=== PATIENT | female | born 1985 | race Caucasian/White ===

== ENCOUNTER 2018-08-07 10:48 | Inpatient (IN) | payer OTHER ==
--- NOTE | 2018-08-06 21:25 | PDGENHP ---
History and Physical - Chief Complaint RIGHT HIP PAIN - History of Present Illness Diagnosis: 1.~~~Bilateral~Hip Dyplasia 2.~~~Bilateral~Femoroacetabular impingement (IDALIA) Cam type,~with~resultant labral tear 3. 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 ~Marisaenjoys hiking, fishing, hunting and [employer]. Shireen's~bilateral~hip pain~started December 2016~during a traumatic delivery of her daughter,~and with~no~previous complaints.~Marisadoes have~a known history of hip dysplasia. She saw Dr. Quinten Velazquez's PA,~who referred her to our clinic. Presentation today is of~anterior~bilateral~hip pain.~~The hip~does~wake her~at night and~does~click and catch on~her. Sitting~can be a real struggle~for her.~ Marisadoes~report suffering from lower back pain episodes. Marisahas~participated in physical therapy (several months)~and has~tried other conservative measures including:~diagnostic~Right~hip injection~which gave her 100% relief, Right Piriformis injection gave her 100% relief, Right SIJ injection 1 month relief,~dry needling and massage therapy.~She~has not~ received sufficient symptomatic improvement. Marisahas~utilized medication for pain management, including OTC acetaminophen. ~Marisahas used medication since the pain began.~ Marisaunderstands that~xenia~has a hip and pelvis problem which should be researched and wishes to get a better understanding of~her~hip status, followed by an establishment of a treatment strategy, hoping~xenia~would be able to get back to~her~well being active life. History: Past medical history:~~ GERD, endometriosis, PTSD Relevant familial history:~OA father and mother (back); sister with MS Past surgical history:~ No. Surgery Anesthesia 1 Epidural/general Shireen~denies problematic issues with general anesthesia in the past. I have reviewed, verified and agree with the past medical, surgical, family and social history. Current Medications:~has a current medication list which includes the following prescription(s): acetaminophen, celecoxib, cholecalciferol (vitamin d3), diclofenac sodium 1%, dicyclomine, levonorgestrel-ethi estradiol, lisdexamfetamine, multivitamin, and ondansetron, and the following Facility- Administered Medications: lidocaine. ALLERGIES:~is allergic to augmentin [amoxicillin-pot clavulanate]; avelox [ moxifloxacin]; latex; moxifloxacin hcl; penicillins; and wellbutrin [bupropion hcl]. Objective: Physical Examination: Marisais 5~feet~5~inches tall and weighs~122~Lbs. Shoe size~8.5. Marisais AAO x3; she~is well-nourished, in NAD. Skin is warm and dry. ~ Breathing is non-labored. ~CV with RRR by pulse. Abdomen is soft, NTND. Currently,~she~walks with an~abnormal~antalgic gait favoring LEFT leg Trendelenburg sign is~negative~and proprioception~is reduced,~both~sides. She~presents~with no~signs of joint laxity.~Beightons Score:~0 Lower spine examination is~positive~for sciatic nerve irritation with positive~ SLR tests.~Range of motion of the spine is normal~for flexion, extension, and rotations,~with~associated pain. Strength, Sensation and pulses are~normal -~bilaterally Ankles and knees exams are~normal~and~no~mal-alignment is evident.~ She~has~no leg length discrepancy. Thigh circumference is~symmetric~with no evidence for muscle atrophy~on both~ sides. Hip ROM (degrees): FL ER At 90~hip FL IR At 90~hip FL AB AD EX IR Neutral hip ER Neutral hip R 115 55 25 35 5 10 40 45 L 110 60 40 40 5 20 40 20 Specific hip and pelvis tests: Impingement Test MATHEUS Roll Add. Longus R +++ +++ ++ +++ L +++ +++ ++ +++ Glut. Med ITB Posterior Imp R Negative 5/5 strength Negative 5/5 strength +++~ L Negative 5/5 strength Negative 5/5 strength Negative Squeeze test measured~weak Bony Symphysis pubis is~painful~to touch~while concentric activity of the rectus abdominis, does~produce pain at its insertion. Ilio Psos specific tests are~positive for pain during cycling~for both hips~and no snap. HF has~weakness, pain~both hips. Posterior~capsule tenderness bilaterally Greater trochanteric burse is~pain free~on both hips. Piriformis tests: FAIR is~positive,~with no~local signs of neuritis related to sciatic nerve. SIJs examination is~produces pain on~right side~with~normal~MATHEUS in relation and local tenderness. Hamstrings tests are~negative~functional contraction and positive~tendinopathy the right hip. On a daily basis, the following percentages reflect~Shireen's overall total pain: Deep hip:~80% SIJ:~10% Right Hamstrin% Imaging: Radiology studies which I~have personally reviewed, analyzed and measured are below: XR: AP of the hip and pelvis: Performed in a~good~technique Coccyx to pubic symphysis distance~0.8~cm. 0~degrees [place]~Lines are interrupted. Minimal~Pathological signs are seen in the Symphysis Pubis.~ Minimal~Pathological signs are seen at the Ischial~tuberosity. ~ Specific measurements show: NSA~ LCE Sourcil~Angle Sharp's angle Lat. Cam Lat. Pincer C.Over~sign Head~Coverage % ATDmm R 132 14 10 46 - - - 71 N L 134 12 13 47 - - - 64 N Pos. wall sign ISS NAD ~~Dysplasia Comments R Negative Negative 19~mm +++ L Negative Negative 26.7~mm +++ Sclerosis Sup. Lat. OA Cysts Joint Space-WBZ Joint Space-Medial R Negative Negative Negative 4.3~mm 3.9~mm L Negative Negative Negative 4.2~mm 3.7~mm X Table lateral: Anterior cam lesion is~seen~on both hips. Alpha Angle: ~ Right~68~degrees Left~60~degrees CT / 3D:~ MEASUREMENTS: Right hip: Lateral center edge angle: 20 degrees Anterior center edge angle: 48 degrees Equatorial acetabular version angle: 30 degrees Cranial acetabular version angle: 19 degrees Femoral neck shaft angle: 139 degrees Femoral neck version angle: -13 degrees. Right femoral torsion measures 0 degrees. Left hip: Lateral center edge angle: 17 degrees Anterior center edge angle: 34 degrees Equatorial acetabular version angle: 32 degrees Cranial acetabular version angle: 25 degrees Femoral neck shaft angle: 139 degrees Femoral neck version angle: -9 degrees. Left femoral torsion measures 4 degrees. MRI shows:~ Hypertrophied, torn labrum, no bone edema or cystic changes. ~Good cartilage coverage. ~ Impression and plan:~ Shireen~is a~32 y.o.~active female~suffering from symptomatic~Bilateral~hip pain due to Hip Dyplasia~and~Femoroacetabular impingement (IDALIA)~Cam type,~with~ resultant labral tear causing significant disability to~her~and altering~her~ sport and life activities. She also presents with femoral retro torsion characteristics.~ Physical examination, imaging, and~her~story correspond with the diagnosis mentioned above. I explained that hip dysplasia is a condition wherein the hip joint has excessive play~and instability due to a variety of factors, including the depth and adequacy of the socket, the orientation of the femur bone, and ligament laxity around the hip joint. Dysplasia ranges in severity from borderline to ignacio, with treatment options being specific to the specific nature of the problem. Left untreated, the instability in the hip joint can cause progressive tearing of the labrum and deterioration of the surface cartilage, ultimately resulting in progressive osteoarthritis of the hip. I explained that femoroacetabular impingement (IDALIA - Cam type) arises due to a bony or soft tissue conflict between the femur (ball) and acetabulum (socket) caused by an abnormality in the shape of the femoral head and neck. Over time, repetitive impingement can result in damage to the labrum and adjacent surface cartilage within the socket, ultimately giving rise to progressive osteoarthritis of the hip. I explained that although a labral tear can be a source of pain, it is rarely the root of the problem and typically occurs secondary to an underlying abnormality in the shape and mechanics of the hip joint. I reviewed conservative treatment options for Dysplasia and IDALIA including activity modification to avoid positions of impingement or instability, physical therapy, non-steroidal anti-inflammatory medications, and various injections (corticosteroid and PRP) aimed at reducing inflammation in the hip joint or/and preventing dynamic instability and impingement. PRP injections may promote healing and reduce symptoms in certain cases but it will not repair chronically damaged tissue. Although these measures may help to buy time~and reduce current level of symptoms, they are not a definitive solution to the problem given the underlying abnormality in the shape of the hip joint. Patients who have failed conservative management and continue to experience symptoms are candidates for definitive surgical treatment, which may consist of hip arthroscopy alone or in combination with more invasive bony realignment procedures of the hip socket and/or femur called periacetabular osteotomy (GISELA) or derotational femoral osteotomy (DFO). Hip arthroscopy typically includes treating the labrum with either repair or reconstruction of the torn labrum; as well as addressing the underlying abnormalities by restoring the normal shape to the hip joint. If the cartilage is damaged a Microfracture surgical procedure may also be necessary to help stimulate the growth of fibrocartilage. If a patient requires a labral reconstruction or a Microfracture, the initial rehabilitation from the surgery may take longer, but the termite technician results are typically favorable. I reviewed the technical aspects of periacetabular osteotomy (GISELA) including risks, benefits, and expected course of recovery.~Shireen~understands that GISELA is an inpatient procedure carried out through two medium sized incisions on the front and back of the hip joint. The hip socket is cut, realigned, and stabilized with 2 3 internal screws. Risks include infection, bleeding, injury to nearby nerves or vessels, stiffness, persistent pain, instability, failure of bony healing, implant related complications, and venous thromboembolic disease. Rarely, revision surgery may be required to address these problems. Risks, potential complications, side effects and recovery from surgical procedure were discussed in length. We explained how this surgery is an open procedure, and though patients tend to do well in the long-term, it involves significant pain in the first 2-4 weeks post-op and a rather lengthy rehab.~Overall recovery takes approximately 6 12~months depending on the extent of damage and degree of repair. Shireen~understands that she~will undergo hip arthroscopy 1 week prior to the GISELA to address damage inside the hip joint. Shireen~understands that hip arthroscopy and GISELA are two separate procedures that are best performed one week apart, with the arthroscopy commencing first to "tighten up" any pathology evident in the hip joint (labral repair, etc.) and the GISELA open procedure occurring 7-10 days later to realign the acetabulum. I explained that femoral~Retro-torsion~is a condition wherein the hip joint has reduced range of motion~due the fact the~femur bone is rotated towards the back of the hip socket resulting in additional impingement pathology. This pathology ranges in severity with treatment options being specific to the nature of the problem. Left untreated, the retro-torsion related impingement in the hip joint can cause progressive tearing of the labrum and deterioration of the surface cartilage, ultimately resulting in progressive osteoarthritis of the hip.~ At this point, due to her activity level and goals, we will not plan on adding a DFO to the GISELA. However, we discussed that if she would feel that the GISELA resulted in significant loss of physiological range of motion we can proceed with a DFO at a later date. ~ In order to differentiate between the various possible sources of pain~Shireen~ opted to move forward with an intra articular injection today in clinic. After verbal consent was obtained and Marisavoiced understanding of risks of infection, misplaced injection, fat or skin atrophy or injection into unintended structures, skin was prepped and draped in routine sterile fashion. With sterile technique, after local skin and subcutaneous tissues were injected with 5cc 1% lidocaine, an injection of 2cc of Kenalog 40 and 5cc of 1% lidocaine +marcaine~was injected into Shireen's hip joint without complication. The proce dure was well tolerated.~Shireen~noted improved symptoms with activity immediately after injection. The injection took~100% of the pain away. If Shireen continues to have increased Symphysis pubis pain after she gets relief from the cortisone injection, we can refer her to [facility] [place] for an ultrasound guided cortisone injection. Marisawill review the info presented. Marisawill talk with our pattern painter about possible surgery dates. ~She will first set up the date for the GISELA and will then schedule with Dr. Shipley for the hip arthroscopy. Marisais happy with this plan. I have also supplied~her~with handouts, outlining the expected surgical treatment and rehab involved. I wish~Shireen~all the best, ~~ STACIA Gutierrez History Information - Allergies/Home Medication List Allergies/Adverse Reactions: latex Allergy (Verified 07/26/18 18:17) Rash Penicillins Allergy (Verified 07/26/18 18:16) YEAST INFECTION SSRI Allergy (Uncoded 07/26/18 18:17) Diarrhea Home Medications: ACETAMINOPHEN DAILY 07/26/18 [Last Taken Unknown] Claritin DAILY 07/26/18 [Last Taken Unknown] Dicyclomine PRN 07/26/18 [Last Taken Unknown] Prilosec DAILY 07/26/18 [Last Taken Unknown] Probiotic BID 07/26/18 [Last Taken Unknown] VYVANSE DAILY 07/26/18 [Last Taken Unknown] Zantac DAILY 07/26/18 [Last Taken Unknown] Zofran Odt 4 mg (*) PRN 07/26/18 [Last Taken Unknown] I have personally reviewed and updated: medical history - Social History Smoking Status: Former smoker Review of Systems Review of Systems: Physical Exam Physical Exam:
[2018-08-07] MEDS ORDERED: PREGABALIN 150 MG CAP PO ONE (11:27)
[2018-08-07] MEDS ORDERED: TRANEXAMIC ACID 1,000 MG in NS 100 ML IV ONE (11:27)
[2018-08-07] MEDS ORDERED: SCOPOLAMINE HYDROBROMIDE 1 MG/3 DAYS PATCH TD ONE (11:27)
[2018-08-07] MEDS ORDERED: ACETAMINOPHEN 500 MG TAB PO ONE (11:27)
[2018-08-07] MEDS ORDERED: ceFAZolin 2 GM/DEXTROSE 100 ML IV ONE (11:27)
[2018-08-07] MEDS ORDERED: LR 1,000 ML IV ONE (11:29)
[2018-08-07] MEDS ORDERED: MIDAZOLAM 2 MG/2 ML VIAL IVP ONE (13:03)
--- NOTE | 2018-08-07 13:05 | PDANEPAE ---
ANE Past Medical History - Cardiovascular History Hx Hypertension: No Hx Arrhythmias: No Hx Chest Pain: No Hx Coronary Artery / Peripheral Vascular Disease: No Hx CHF / Valvular Disease: No Hx Palpitations: No Cardiovascular History Comment: SVT 04/02/18 HOLTER NORMAL. ONE TUNE - Pulmonary History Hx COPD: No Hx Asthma/Reactive Airway Disease: No Hx Recent Upper Respiratory Infection: No Hx Oxygen in Use at Home: No Hx Sleep Apnea: No Sleep Apnea Screening Result - Last Documented: Negative - Neurologic History Hx Cerebrovascular Accident: No Hx Seizures: No Hx Dementia: No - Endocrine History Hx Diabetes: No - Renal History Hx Renal Disorders: No - Liver History Hx Hepatic Disorders: No - Neurological & Psychiatric Hx Hx Neurological and Psychiatric Disorders: Yes Neurological / Psychiatric History Comment: ADHD - Cancer History Hx Cancer: No - Congenital Disorder History Hx Congenital Disorders: Yes Congenital History Comment: HIP DYSPLASIA - GI History Hx Gastrointestinal Disorders: Yes Gastrointestinal History Comment: IBS - Other Health History Other Health History: ECZEMA SHLDRS,FACE AND NECK - Chronic Pain History Chronic Pain: Yes (CAMELIA HIPS) - Surgical History Prior Surgeries: RT HIP SCOPE LABRAL REPAIR 07/31/18 IN [place]. 2017 ANE Review of Systems Review of Systems: - Exercise capacity METS (RN): 4 METS ANE Patient History - Allergies Allergies/Adverse Reactions: latex Allergy (Verified 07/26/18 18:17) Rash Penicillins Allergy (Verified 07/26/18 18:16) YEAST INFECTION SSRI Allergy (Uncoded 07/26/18 18:17) Diarrhea - Home Medications Home medications: home medication list seen and reviewed Home Medications: ACETAMINOPHEN DAILY 07/26/18 [Last Taken 08/07/18 00:40] Claritin DAILY 07/26/18 [Last Taken 08/06/18] Dicyclomine PRN 07/26/18 [Last Taken Unknown] Prilosec DAILY 07/26/18 [Last Taken 08/06/18] Probiotic BID 07/26/18 [Last Taken 08/06/18] VYVANSE DAILY 07/26/18 [Last Taken 07/31/18] Zantac DAILY 07/26/18 [Last Taken 08/06/18] Zofran Odt 4 mg (*) PRN 07/26/18 [Last Taken 08/05/18] [place]well 5-325 Tablet 08/07/18 [Last Taken 08/07/18 04:00] - NPO status NPO Since - Liquids (Date): 08/07/18 NPO Since - Liquids (Time): 04:00 NPO Since - Solids (Date): 08/06/18 NPO Since - Solids (Time): 18:00 - Smoking Hx Smoking Status: Former smoker ANE Labs/Vital Signs - Labs Result Diagrams: 08/07/18 11:27 - Vital Signs Height: 165.1 cm Weight: 55.338 kg ANE Physical Exam - Airway Mallampati Score: Class 1 Mouth exam: normal dental/mouth exam - Pulmonary Pulmonary: clear to auscultation - Cardiovascular Cardiovascular: regular rate and rhythym - ASA Status ASA Status: II ANE Anesthesia Plan Anesthesia Plan: general endotracheal anesthesia Regional Anesthesia: single shot NB, POPC/PSR
[2018-08-07] MEDS ORDERED: CITRATE DEXTROSE SOLN 500 ML BAG ONE (13:25)
[2018-08-07] MEDS ORDERED: DEXMEDETOMIDINE HCL 400 MCG in NS 100 ML IV SCH (13:30)
[2018-08-07] MEDS ORDERED: HYDROmorphONE/DILAUDID 2 MG/ML INJ ONE (13:34)
[2018-08-07] MEDS ORDERED: PROPOFOL 200 MG/20 ML VIAL ONE (13:34)
[2018-08-07] MEDS ORDERED: fentaNYL 100 MCG/2 ML INJ ONE ×2 (13:34→18:41)
[2018-08-07] MEDS ORDERED: PROPOFOL/EMULSION 500 MG/50 ML BOTTLE IV ONE ×2 (13:34→15:09)
[2018-08-07] MEDS ORDERED: PETROLAT,WHT/MIN OIL/SOD CHL 3.5 GM OPHT.OINT ONE (13:35)
[2018-08-07] MEDS ORDERED: morphINE PF 5 MG/10 ML INJ ONE (13:43)
[2018-08-07] MEDS ORDERED: ePHEDrine SULFATE 25 MG/5 ML SYR ONE ×2 (14:15→14:23)
[2018-08-07] MEDS ORDERED: ROCURONIUM 50 MG/5 ML VIAL ONE ×2 (14:22)
[2018-08-07] MEDS ORDERED: PHENYLEPHRINE HCL 100 MCG/ML SYR ONE (14:23)
[2018-08-07] MEDS ORDERED: DEXAMETHASONE 4 MG/ML VIAL ONE (14:23)
[2018-08-07] MEDS ORDERED: RANITIDINE 50 MG/2 ML VIAL ONE (14:24)
[2018-08-07] MEDS ORDERED: METOCLOPRAMIDE 10 MG/2 ML VIAL ONE (14:24)
[2018-08-07] MEDS ORDERED: ONDANSETRON 4 MG/2 ML VIAL IVP PRN ×2 (17:45→18:06)
[2018-08-07] MEDS ORDERED: LACTULOSE 20 GM/30 ML UDCUP PO PRN (17:45)
[2018-08-07] MEDS ORDERED: POLYETHYLENE GLYCOL 3350 17 GM PKT PO PRN (17:45)
[2018-08-07] MEDS ORDERED: BISACODYL 10 MG SUPP PR PRN (17:45)
[2018-08-07] MEDS ORDERED: ACETAMINOPHEN 325 MG TAB PO PRN (17:45)
[2018-08-07] MEDS ORDERED: ONDANSETRON DISINTEGRATING 4 MG TAB PO PRN (17:45)
[2018-08-07] MEDS ORDERED: MAGNESIUM HYDROXIDE 30 ML UDCUP PO PRN (17:45)
[2018-08-07] MEDS ORDERED: NALOXONE HCL 0.4 MG/ML INJ IVP PRN ×2 (17:46→18:06)
[2018-08-07] MEDS ORDERED: diphenhydrAMINE 25 MG CAP PO PRN (17:46)
[2018-08-07] MEDS ORDERED: oxyCODONE IR 5 MG TAB PO PRN ×2 (17:47→18:06)
[2018-08-07] MEDS ORDERED: PROMETHAZINE HCL 25 MG/ML INJ IVP PRN (18:06)
[2018-08-07] MEDS ORDERED: DIAZEPAM 10 MG/2 ML SYR IVP PRN (18:06)
[2018-08-07] MEDS ORDERED: ACETAMINOPHEN 500 MG TAB PO PRN (18:06)
[2018-08-07] MEDS ORDERED: HYDROCODONE/APAP 5/325 TAB PO PRN (18:06)
[2018-08-07] MEDS ORDERED: HYDROmorphONE/DILAUDID 1 MG/ML INJ ONE (18:12)
--- NOTE | 2018-08-07 18:12 | POSTANESTH ---
Post Anesthetic Evaluation Cardiovascular Status: Normal, Stable, Similar to Pre-Op Cond Respiratory Status: Normal, Stable, Similar to Pre-op Cond. Level of Consciousness/Mental Status: Mildly Sleepy, Arousable Pain Control: Adequate, Prn Tx Ordered Nausea/Vomiting Control: Adequate, Prn Tx Ordered Complications Possibly Related to Anesthesia: None Noted
[2018-08-07] MEDS: HYDROmorphONE/DILAUDID 1 MG/ML INJ IVP PRN ×2 (18:18→18:28)
--- NOTE | 2018-08-07 18:20 | SUROPNOTE ---
SARAH Operative Report - Surgery Surgery was performed at [facility] on~08/07/18~ Diagnosis:~Right 1. Hip Acetabular Dysplasia ~ Operation: Right~Erin Acetabular Osteotomy (GISELA) Surgeon: Jonathon Valdes MD Furniture Fabricator:~~Maday Melo MD Anesthetic: General + spinal Procedure: General anesthetic. Antibiotics given. Cell saver in use. Fluoroscopy. Phase 1: Position lateral, diagonal skin incision between ischial tuberosity and greater trochanter as for posterior hip approach. Blunt split of glut max fibers. Identification of fat pad overlying sciatic nerve. Exposure of sciatic nerve under fat pad, gently retracting it away-medially to ischial tuberosity. Exposure of subcotoloid fossa proximal to short rotators. UsingPrecision saw, osteotomy of subcotoloid [id number] mm short of (lateral to) thesciatic notch. Closure of lateral cut. Patient is turned supine. Phase 2: Skin incision just distal to ASIS. Using diathermy the iliac spine was exposed and inguinal ligament + Sartorious were retracted medially, taking the LFCN with them, protecting it. Inner ilium was dissected from iliacus muscle bluntly , with a cob and swab. Dissection continued towards lateral superior ramus pubis. Using fluoroscopy an osteotomy of lateral superior ramus, just medial to tear drop, was performed with~curved fish mouth osteotome. Phase 3: Osteotomy lines of the ilium were marked with diathermy as pre planned according to XR/CT and expected correction of acatabulum. 2 Shanz screws were drilled into central acetabular fragment, corresponding with planned correction angles, in order to mobilize central acetabular fragment after osteotomy is complete. ~Iliac osteotomy was performed with reciprocating saw and the main acetabular fragment was moved to realign weight bearing position. After confirmation of correction using fluoroscopy in AP and false profile planes, the fragment was fixed with 3 -~5.5mm~~full threaded~screws~and 1 -~4mm~~full threaded~screw. Inguinal ligament and Sartorious were attached back to ASIS through drill holes. Incision was closed according to soft tissue layers. Skin was closed with~subdermal Monocryl. Final fluoro shots were obtained to confirm position/correction. After surgery~Shireen~moved both lower limbs and had no NV motor compromise. Specimen - none Bleeding -~550ml Complication - none Evaluation under anesthesia: IR at 90 degrees hip flexion prior to GISELA was~20~degrees and after GISELA was 5~ degrees. Bleeding:~550~cc into cell-saver, 270~of blood products were returned to patient. Post op instructions: 1.~Non~weight bearing crutches for 3~weeks 2. Continuous SCD 3. Aspirin 81 mg X1 day starting POD1 4. Avoid hip flexion past 90 and hip External rotation. 5. PT according to my recommendations at follow up visit Kind regards, Dr. Jonathon Valdes
[2018-08-07] MEDS ORDERED: METOPROLOL TARTRATE 5 MG/5 ML INJ ONE (18:41)
[2018-08-07] MEDS: fentaNYL 100 MCG/2 ML INJ IVP PRN ×2 (18:45→18:51)
[2018-08-07] MEDS ORDERED: METOPROLOL TARTRATE 5 MG/5 ML INJ IVP ONE (19:00)
[2018-08-07] MEDS ORDERED: SENNOSIDES/DOCUSATE SODIUM TAB PO SCH (21:00)
[2018-08-07] MEDS: NS 1,000 ML IV SCH (21:05)
[2018-08-07] MEDS: HYDROmorphONE/DILAUDID 6 MG/30 ML PCA IV PRN (21:05)
[2018-08-07] MEDS: oxyCODONE IR 5 MG TAB PO SCH (22:04)
[2018-08-07] MEDS: NAPROXEN SODIUM 220 MG TAB PO SCH (22:05)
[2018-08-08] MEDS: oxyCODONE IR 5 MG TAB PO SCH ×5 (01:44→13:43)
[2018-08-08] MEDS: NS 1,000 ML IV SCH ×2 (06:48→18:33)
[2018-08-08] MEDS ORDERED: CALCIUM CARBONATE 500 MG CHEWABLE TAB PO PRN (08:13)
[2018-08-08] MEDS ORDERED: DICYCLOMINE 10 MG CAP PO PRN (08:13)
--- NOTE | 2018-08-08 08:29 | PDMN ---
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 PMHx includes SVT, IBS, ADHD, chronic pain in bilateral hips, and former smoker.
--- NOTE | 2018-08-08 08:49 | PDPAINCON ---
Pain Management Consultation Patient referred by : Fatoumata Arredondo - Subjective Pain is: under control Side effects include: No drowsy, No nausea, No nausea/vomiting - Objective Technique: spinal opioid Sensory and motor exam: consistent with block Vital signs: stable - Assessment/Plan Assessment/Plan: pain well-controlled, continue current mgmt (POD 1 s/p GISELA with IT morphine. Block receded around 0500. Attempting to manage pain with EXTENSION EDUCATOR since that time. Patient overall doing well.)
[2018-08-08] MEDS ORDERED: PANTOPRAZOLE SODIUM 40 MG TAB PO SCH (09:00)
--- NOTE | 2018-08-08 09:32 | GCON ---
[f rep st] CONSULTATION HOSPITALIST CONSULTATION REFERRING PHYSICIAN: Jonathon Valdes MD REASON FOR CONSULTATION: Medical management. CHIEF COMPLAINT: Thrush, constipation. HISTORY OF PRESENT ILLNESS: This is a very pleasant 32-year-old female with a past medical history s ignificant for GERD, endometriosis, PTSD, chronic hip pain due to hip dysplasia, who is postop day #1 status post GISELA and DFO with Dr. Valdes. The patient reports that she has had intermittent issues with thrush. She is concerned that after anesthesia with the ET tube that she will have worsening sy mptoms. She has had some sore throat. Previously, she required a prolonged course of nystatin in ad dition to Diflucan for treatment. Patient reporting some sore throat and odynophagia. She denies an y fevers or chills. She has been tolerating oral hydration well without any issues. No issues with dysphagia. Additionally, the patient reports this morning increasing groin and operative site pain. Patient was hoping to try to minimize the use of her WHEEL TUNER. She had been taking her Oxy p.r.n. and th is morning she woke up with increasing pain. She denies any numbness or tingling in her lower extrem ities. In addition, the patient's blood pressures at baseline are low normal in the 90s to 100s. Ov ernight, she had blood pressures systolic 80s to 90s. She has been asymptomatic without any tachycar chris. She denied any chest pain or shortness of breath. She reports that usually if her blood pressu res will drop to low 80s that she will become symptomatic and dizzy, but it usually resolves with IV fluids or oral hydration. REVIEW OF SYSTEMS: 10 systems reviewed and negative except as noted above. ALLERGIES: Listed Avelox, latex, penicillin, Wellbutrin. HOME MEDICATIONS: See EMR. CURRENT MEDICATIONS: See active MAR. PAST MEDICAL HISTORY: Significant for GERD, endometriosis, PTSD, chronic hip pain due to hip dysplas ia, history of nonsustained SVT, IBS. PAST SURGICAL HISTORY: 2017; GISELA and DFO postop day #1. FAMILY HISTORY: Significant for sister with MS. Father, mother with osteoarthritis. 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 She denies any tobacco, drugs, or alcohol use. PHYSICAL EXAMINATION: VITAL SIGNS: Currently blood pressure of 91/60, heart rate 85, respiratory ra te 17, O2 saturation 99% on room air, temperature 36.6. GENERAL: No acute distress. Very pleasant adult female who is resting in bed. She does appear fatigued and is uncomfortable with movement but in good spirits. HEAD: Normocephalic, atraumatic. EYES: Extraocular muscles grossly intact. Pupi ls equal, round, slightly decreased reactivity to light bilaterally, but symmetric. No scleral icter us or conjunctival injection. ENT: Mucous membranes are quite dry. The patient does have a little bit of patchiness in the oropharynx and on her tongue. Dentition intact. NECK: Supple. Trachea mi dline. CV: Regular rate and rhythm. No murmurs, rubs, or gallops appreciated. RESPIRATORY: Lungs are clear to auscultation bilaterally. No wheezes, rales, or rhonchi appreciated. ABDOMEN: Positi ve bowel sounds. Soft, nontender to palpation. No rebound, guarding, or masses appreciated. : F oley catheter in place. No suprapubic tenderness to palpation. MUSCULOSKELETAL: Exam limited in se tting of postoperative status, but she is able to move her distal extremities while lying in bed. Mo ves upper extremities. NEURO: Sensation intact. Grossly nonfocal. Limited as noted above. PSYCH: Thought process, content, and questions all appropriate. LABORATORY DATA: 1. WBC 11.50, H/H 14.0/41.2, MCV 97.4, platelet count is 272. 2. Labs this morning: WBC is 10.8, H/H 10.0/29.5, MCV 97.7, platelet count 223. 3. Sodium 135, potassium 4.5, chloride 107, CO2 is 23, anion gap of 5, BUN 6, creatinine 0.5, GFR gr eater than 60, glucose is 103, calcium 7.8. LFTs added on for patient consideration of possible Difl ucan. Check LFTs. Total bilirubin 0.6, ALT is 29, AST is 21, alkaline phosphatase is 29, total prot ein is 4.7, albumin is 2.3. ASSESSMENT AND PLAN: A pleasant 32-year-old female postop day #1 status post GISELA and DFO by Dr. Anil Arredondo. Consult for medical management. 1. Thrush. Will start with nystatin swish and swallow 4 times daily. Patient reports that previous ly she did require some Diflucan. At this time, will monitor and see how she progresses, as symptoms appear to be more mild at this time. LFTs are within normal limits if Diflucan does need to be init iated. 2. Gastroesophageal reflux disease. Continue with PPI formulary. 3. Irritable bowel syndrome. Continue Bentyl. 4. Acute postoperative pain as per Dr. Valdes. Patient with WHEEL TUNER and Oxy p.r.n. 5. Acute blood loss anemia. EBL 550 cubic centimeters, Cell Saver 270 cc returned to the patient. Continue to monitor. 6. Hypotension. Patient reports baseline blood pressures systolic in the 90s to low 100s. She is c urrently asymptomatic. She has IV fluids in place. Does not require any transfusion at this time. 7. Hypocalcemia. Checked albumin and this corrects. 8. Fluids, electrolyte, nutrition. IV fluids as noted above. Diet advanced to regular. Electrolyt es are adequate at this time. 9. Prophylaxis. As per primary team with aspirin, SCDs. Thank you for consultation. Continue to follow. /[id number]/MODL
[2018-08-08] MEDS: DOCUSATE SODIUM 100 MG CAP PO SCH ×2 (10:24→20:31)
[2018-08-08] MEDS: PANTOPRAZOLE SODIUM 40 MG TAB PO SCH (10:25)
[2018-08-08] MEDS: CETIRIZINE 10 MG TAB PO SCH (10:25)
[2018-08-08] MEDS: LISDEXAMFETAMINE DIMESYLATE 10 MG PO SCH (10:46)
[2018-08-08] MEDS: NAPROXEN SODIUM 220 MG TAB PO SCH ×3 (10:59→22:12)
[2018-08-08] MEDS: DIAZEPAM 2 MG TAB PO PRN ×2 (11:00→23:27)
[2018-08-08] MEDS: NYSTATIN SUSP 500000 UNIT/5 ML UD LIQ PO SCH ×4 (11:02→20:30)
[2018-08-08] MEDS ORDERED: fentaNYL 100 MCG/2 ML INJ IVP PRN ×2 (12:20→12:22)
[2018-08-08] MEDS: HYDROmorphONE/DILAUDID 2 MG TAB PO PRN ×4 (14:38→20:38)
[2018-08-08] MEDS: METHOCARBAMOL 500 MG TAB PO PRN ×2 (14:38→20:30)
--- NOTE | 2018-08-08 15:20 | ASMTCMCOM ---
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 Pt resides with spouse and children. OT rec home, PT rec home care. CM to follow pt progress. D/c plan of care: Pt likely will have outpatient PT per MD rec Date Signed: 08/08/2018 03:20 PM Electronically Signed By:JUANITA Newell
--- NOTE | 2018-08-08 17:12 | SOAPPROG ---
SOAP Progress Note Assessment/Plan: Assessment: 32 yo F POD#1 s/p R GISELA, some pain post-op after working with PT/OT Plan: Continue pain control with [employer], PO pain meds (switched oxy to dilaudid at this time) d/c wu when able to mobilize to bedside commode ASA, SCDs for DVT ppx NWB RLE, PT/OT Pelvis XR POD#3, must be cleared by Dr. 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 No CP/ SOB. Objective: Vital Signs Temp Pulse Resp BP Pulse Ox 36.7 C 95 18 117/67 99 08/08/18 15:49 08/08/18 15:49 08/08/18 15:49 08/08/18 15:49 08/08/18 15:49 Laboratory Results 08/08/18 04:42 08/08/18 04:42 08/07/18 08/08/18 08/09/18 05:59 05:59 05:59 Intake Total 3850 500 Output Total 2300 2500 Balance 1550 -2000 Gen: NAD, tired R hip dressings c/d/i Some lateral thigh numbness in LFCN distribution 5/5 TA, GSC, EHL SILT throughout foot ICD10 Worksheet Patient Problems: Problems Problem Status Onset Hip dysplasia Acute - ICD10 Problem Qualifiers (1) Hip dysplasia
[2018-08-08] MEDS: HYDROmorphONE/DILAUDID 6 MG/30 ML PCA IV PRN (17:52)
[2018-08-08] MEDS: HYDROmorphONE/DILAUDID 4 MG TAB PO SCH ×2 (18:28→22:12)
[2018-08-09] MEDS: HYDROmorphONE/DILAUDID 2 MG TAB PO PRN ×3 (00:39→20:25)
[2018-08-09] MEDS: HYDROmorphONE/DILAUDID 4 MG TAB PO SCH ×6 (02:00→22:04)
[2018-08-09] MEDS: METHOCARBAMOL 500 MG TAB PO PRN ×2 (02:01→09:44)
[2018-08-09] MEDS: NS 1,000 ML IV SCH (02:01)
[2018-08-09] MEDS: HYDROmorphONE/DILAUDID 6 MG/30 ML PCA IV PRN (04:17)
[2018-08-09] MEDS: NYSTATIN SUSP 500000 UNIT/5 ML UD LIQ PO SCH ×4 (05:54→20:25)
[2018-08-09] MEDS: NAPROXEN SODIUM 220 MG TAB PO SCH ×3 (10:00→22:03)
[2018-08-09] MEDS: CETIRIZINE 10 MG TAB PO SCH (10:01)
[2018-08-09] MEDS: DOCUSATE SODIUM 100 MG CAP PO SCH ×2 (10:01→20:24)
[2018-08-09] MEDS: PANTOPRAZOLE SODIUM 40 MG TAB PO SCH (10:02)
[2018-08-09] MEDS: LISDEXAMFETAMINE DIMESYLATE 10 MG PO SCH (10:43)
--- NOTE | 2018-08-09 11:40 | HOSPPROG ---
Hospitalist Progress Note Assessment/Plan: 32y female postop GISELA. #Hx Thrush -nystatin #GISELA -POD #2 stable #Pain -meds adjusted #GERD -stable #IBS -stable -bowel protocol #ABLA -stable, expected #Hypotension -at baseline #Dispo -per ortho Subjective: Feeling better. Still some pain. Objective: Vital Signs Temp Pulse Resp BP Pulse Ox 36.5 C 91 14 90/50 L 93 08/09/18 08:00 08/09/18 08:00 08/09/18 08:00 08/09/18 08:00 08/09/18 08:00 Laboratory Results 08/08/18 04:42 08/08/18 04:42 08/08/18 08/09/18 08/10/18 05:59 05:59 05:59 Intake Total 3850 1250 1200 Output Total 2300 6400 1300 Balance 1550 -5150 -100 - Physical Exam Constitutional: no apparent distress, appears nourished Eyes: PERRL, anicteric sclera Ears, Nose, Mouth, Throat: moist mucous membranes, hearing normal Cardiovascular: No JVD, No edema Respiratory: no respiratory distress, reduced air movement Gastrointestinal: No tenderness, No ascites Skin: warm, normal color Musculoskeletal: joint tenderness, pain with ROM, generalized weakness Neurologic: AAOx3 Psychiatric: not anxious, not encephalopathic ICD10 Worksheet Patient Problems: Problems Problem Status Onset Hip dysplasia Acute
[2018-08-09] MEDS: CEPACOL LOZENGE PO PRN ×2 (12:51→18:47)
[2018-08-09] MEDS ORDERED: METHOCARBAMOL 500 MG TAB PO PRN (15:14)
[2018-08-09] MEDS: ASPIRIN EC 81 MG TAB PO SCH (18:26)
--- NOTE | 2018-08-09 20:19 | SOAPPROG ---
SOAP Progress Note Assessment/Plan: Assessment: Plan: 08/09/18 20:17 POD 2, doing better pain murray, NV intact, LFCN reduced. A bit sleepy due to pain meds. discussed surgery and Next Steps. Dr Valdes Objective: Vital Signs Temp Pulse Resp BP Pulse Ox 36.8 C 114 H 16 106/63 99 08/09/18 19:29 08/09/18 19:29 08/09/18 19:29 08/09/18 19:29 08/09/18 19:29 Laboratory Results 08/08/18 04:42 08/08/18 04:42 08/08/18 08/09/18 08/10/18 05:59 05:59 05:59 Intake Total 3850 1250 1200 Output Total 2300 6400 1300 Balance 1550 -5150 -100 ICD10 Worksheet Patient Problems: Problems Problem Status Onset Hip dysplasia Acute
[2018-08-09] MEDS: METHOCARBAMOL 750 MG TAB PO PRN (22:18)
[2018-08-10] MEDS: HYDROmorphONE/DILAUDID 2 MG TAB PO PRN ×4 (00:19→17:02)
[2018-08-10] MEDS: HYDROmorphONE/DILAUDID 4 MG TAB PO SCH ×4 (02:06→14:19)
[2018-08-10] MEDS: METHOCARBAMOL 750 MG TAB PO PRN ×2 (06:13→14:19)
[2018-08-10] MEDS: NYSTATIN SUSP 500000 UNIT/5 ML UD LIQ PO SCH ×3 (06:14→16:14)
[2018-08-10] MEDS: NAPROXEN SODIUM 220 MG TAB PO SCH ×2 (08:07→16:13)
[2018-08-10] MEDS: DOCUSATE SODIUM 100 MG CAP PO SCH (08:10)
[2018-08-10] MEDS: ASPIRIN EC 81 MG TAB PO SCH (08:10)
[2018-08-10] MEDS: CETIRIZINE 10 MG TAB PO SCH (08:11)
[2018-08-10] MEDS: PANTOPRAZOLE SODIUM 40 MG TAB PO SCH (08:11)
--- NOTE | 2018-08-10 09:04 | HOSPPROG ---
Hospitalist Progress Note Assessment/Plan: 32y female postop GISELA. First encounter, chart reviewed. #Hx Thrush -nystatin -recommended she see an ENT, she gets this frequently in her throat area [place] with intubation #Hip dysplasia s/p GISELA -POD #3 #Pain -meds adjusted #GERD -stable #IBS -added simethicone, very bloated -now constipation #ABLA -stable, expected #Hypotension -asymptomatic #plan: care per orthopedics, she needs to do stairs Subjective: Shireen is frustrated about her pain, feeling bloated. Objective: Vital Signs Temp Pulse Resp BP Pulse Ox 36.7 C 98 14 104/60 98 08/10/18 07:52 08/10/18 07:52 08/10/18 07:52 08/10/18 07:52 08/10/18 07:52 Laboratory Results 08/08/18 04:42 08/08/18 04:42 08/09/18 08/10/18 08/11/18 05:59 05:59 05:59 Intake Total 1250 1600 Output Total 6400 1300 Balance -5150 300 - Physical Exam Constitutional: appears nourished, uncomfortable Eyes: PERRL Ears, Nose, Mouth, Throat: hearing normal Cardiovascular: regular rate and rhythym Respiratory: no respiratory distress Gastrointestinal: normoactive bowel sounds, soft, non-tender abdomen, distension Skin: warm, other (right hip, upper thigh area w swelling) Musculoskeletal: generalized weakness Neurologic: AAOx3 Psychiatric: interacting appropriately ICD10 Worksheet Patient Problems: Problems Problem Status Onset Hip dysplasia Acute
[2018-08-10] MEDS ORDERED: SIMETHICONE 80 MG TAB CHEW PO PRN (09:31)
[2018-08-10] MEDS ORDERED: SENNOSIDES 1 TAB PO SCH (09:45)
[2018-08-10] MEDS: LISDEXAMFETAMINE DIMESYLATE 10 MG PO SCH (12:25)
[2018-08-10 12:35] VITALS: BP 100/57
--- NOTE | 2018-08-10 13:32 | SOAPPROG ---
MILY Progress Note Assessment/Plan: Assessment: 3rd post op day Right Periacetabular Osteotomy Plan: Dilaudid Robaxin SCDs/81mg aspirin home today or tomorrow 08/10/18 13:29 Subjective: Shireen is well pain managed with Dilaudid and Robaxin. She has been up with PT/ OT and to the bathroom. She denies any cp, sob or nausea. She'd like to go home today or tomorrow. Objective: Vital Signs Temp Pulse Resp BP Pulse Ox 36.5 C 83 14 100/57 L 99 08/10/18 12:00 08/10/18 12:00 08/10/18 12:00 08/10/18 12:00 08/10/18 12:00 Laboratory Results 08/08/18 04:42 08/08/18 04:42 08/09/18 08/10/18 08/11/18 05:59 05:59 05:59 Intake Total 1250 1600 Output Total 6400 1300 Balance -5150 300 well appearing in NAD Right Hip: dressing clean dry intact some ecchymosis and edema some thigh numbness NVI distally Full ROM of foot and ankle - Pending Discharge Pending Discharge Within 24 Hours: Yes Pending Discharge Date: 08/11/18 Pending Discharge Time: 11:00 ICD10 Worksheet Patient Problems: Problems Problem Status Onset Hip dysplasia Acute
--- NOTE | 2018-08-10 15:51 | ASMTCMCOM ---
CM Note CM Note Notes: Pt medically stable for d/c home with family and following MD rec for outpatient PT. No CM d/c needs identified. Date Signed: 08/10/2018 03:51 PM Electronically Signed By:JUANITA Newell
== END 2018-08-10 17:20 | disposition home or self-care (01) | DRG 516 ==
LOC: F3N 10:48
PROVIDERS: ADMIT Orthopaedic Surgery Sports Medicine; ATTEND Orthopaedic Surgery Sports Medicine
DX: Q65.9 Congenital deformity of hip, unspecified (principal); G89.18 Other acute postprocedural pain; B37.0 Candidal stomatitis; K21.9 Gastro-esophageal reflux disease without esophagitis; K58.1 Irritable bowel syndrome with constipation; D62 Acute posthemorrhagic anemia; E83.51 Hypocalcemia; F90.2 Attention-deficit hyperactivity disorder, combined type; Z87.891 Personal history of nicotine dependence
CPT/HCPCS: 97116-GP; 97161-GP; 97166-GO; 97530-GP; 97535-GO; C1713; J0690; J1100; J1170; J2250; J2274; J2370; J2704; J2765; J2780; J3010